=== PATIENT | female | born 1995 | race African-American/Black ===

== ENCOUNTER 2019-05-05 04:19 | Emergency (ER) | payer MEDICAID ==
[~2019-05-05] VITALS: Ht 160 cm; Wt 75.0 kg
[2019-05-05 06:27] LABS: BASOPHILS % 0.7 % (0.0-2.0); EOSINOPHILS % 7.3 % (0.0-5.0); HEMATOCRIT. 37.6 % (36.0-48.0); HEMOGLOBIN. 12.7 g/dL (12.0-16.0); LYMPHOCYTES % 26.8 % (20.0-50.0); MEAN CORPUSCULAR HEMOGLOBIN 32.4 pg (28.0-32.0); MEAN CORPUSCULAR VOLUME 95.8 fL (81.0-99.0); MEAN PLATELET VOLUME 7.1 fl (7.4-10.4); MONOCYTES % 8.8 % (2.0-8.0); NEUTROPHILS % 56.4 % (40.0-76.0); PLATELET 232 x1000/uL (130-400); RED BLOOD CELL COUNT 3.93 mill/uL (4.2-5.4); RED CELL DISTRIBUTION WIDTH 13.4 % (11.6-14.6)
[2019-05-05 06:32] LABS: CHLORIDE 111 mEq/L (98-107)
[2019-05-05 06:35] LABS: PROTHROMBIN TIME 10.6 sec (9.6-11.0)
[2019-05-05 08:17] LABS: CLARITY URINE CLOUDY (CLEAR); COLOR URINE YELLOW (YELLOW); KETONES URINE TRACE (NEGATIVE); LEUKOCYTE ESTERASE URINE NEGATIVE (NEGATIVE); NITRITE URINE NEGATIVE (NEGATIVE); OCCULT BLOOD URINE NEGATIVE (NEGATIVE); PH URINE 5.5 (4.5-8.0); PROTEIN URINE NEGATIVE (NEGATIVE); SPECIFIC GRAVITY URINE 1.025 (1.005-1.030); UROBILINOGEN URINE 0.2 E.U./dL (0.2-1.0)
[2019-05-05 09:04] VITALS: BP 113/58
== END 2019-05-05 09:10 | disposition home or self-care (01) ==
LOC: ER 04:19
DX: N39.0 Urinary tract infection, site not specified (principal); E88.09 Other disorders of plasma-protein metabolism, not elsewhere classified; F12.10 Cannabis abuse, uncomplicated; J45.909 Unspecified asthma, uncomplicated; Z90.89 Acquired absence of other organs; Z98.890 Other specified postprocedural states
CPT/HCPCS: 36415; 81025; 99283

== ENCOUNTER 2019-06-01 16:35 | Emergency (ER) | payer MEDICAID ==
[~2019-06-01] VITALS: Ht 160 cm; Wt 73.0 kg
[2019-06-01 19:39] VITALS: BP 128/54
== END 2019-06-01 19:47 | disposition home or self-care (01) ==
LOC: ER 16:35
DX: J45.909 Unspecified asthma, uncomplicated (principal); Z76.0 Encounter for issue of repeat prescription; R03.0 Elevated blood-pressure reading, without diagnosis of hypertension
CPT/HCPCS: 99283; Z7610

== ENCOUNTER 2019-07-03 18:24 | Emergency (ER) | payer MEDICAID ==
[~2019-07-03] VITALS: Ht 165.1 cm; Wt 113.0 kg
[2019-07-03] MEDS ORDERED: LORAZEPAM 1MG TABLET PO PRN (19:00)
[2019-07-03 20:49] LABS: BASOPHILS % 0.5 % (0.0-2.0); EOSINOPHILS % 3.1 % (0.0-5.0); HEMOGLOBIN. 12.6 g/dL (12.0-16.0); MEAN CORPUSCULAR HEMOGLOBIN 31.7 pg (28.0-32.0); NEUTROPHILS % 60.4 % (40.0-76.0); PLATELET 247 x1000/uL (130-400); RED BLOOD CELL COUNT 3.98 mill/uL (4.2-5.4); RED CELL DISTRIBUTION WIDTH 12.2 % (11.6-14.6)
[2019-07-03 20:52] LABS: CHLORIDE 106 mEq/L (98-107)
[2019-07-03 20:56] LABS: ETHANOL BLOOD < 10 mg/dL
[2019-07-03 21:11] LABS: HCG SCREEN NEGATIVE
[2019-07-04 07:04] LABS: CLARITY URINE CLOUDY (CLEAR); COLOR URINE YELLOW (YELLOW); KETONES URINE NEGATIVE (NEGATIVE); LEUKOCYTE ESTERASE URINE 2+ (NEGATIVE); NITRITE URINE NEGATIVE (NEGATIVE); OCCULT BLOOD URINE NEGATIVE (NEGATIVE); PROTEIN URINE NEGATIVE (NEGATIVE); SPECIFIC GRAVITY URINE 1.023 (1.005-1.030); UROBILINOGEN URINE 0.2 E.U./dL (0.2-1.0)
[2019-07-04 07:30] LABS: *AMPHETAMINES SCREEN URINE NEGATIVE (NEGATIVE); *BARBITURATES SCREEN URINE NEGATIVE (NEGATIVE); *BENZODIAZEPINES SCREEN URINE NEGATIVE (NEGATIVE); *COCAINE SCREEN URINE NEGATIVE (NEGATIVE)
[2019-07-04 07:31] LABS: METHADONE URINE SCREEN NEGATIVE (NEGATIVE); OPIATES URINE SCREEN NEGATIVE (NEGATIVE); PHENCYCLIDINE URINE SCREEN NEGATIVE (NEGATIVE)
[2019-07-04 07:40] LABS: CANNABINOID URINE SCREEN PRESUMTIVE POSITIVE (NEGATIVE)
[2019-07-04] MEDS ORDERED: ACETAMINOPHEN 325MG TABLET PO ONE (09:15)
[2019-07-04 13:50] VITALS: BP 112/58
== END 2019-07-04 13:52 | disposition home or self-care (01) ==
LOC: ER 18:39
DX: R41.82 Altered mental status, unspecified (principal); R53.1 Weakness; R45.851 Suicidal ideations; J45.909 Unspecified asthma, uncomplicated; Z87.09 Personal history of other diseases of the respiratory system; F12.10 Cannabis abuse, uncomplicated
CPT/HCPCS: 36415; 80305; 80307; 80320; 80329; 81003; 84443; 84703; 93005; 99284; G0480

== ENCOUNTER 2023-12-15 02:01 | Emergency (ER) | payer MEDICAID, OTHER ==
[~2023-12-15] VITALS: Ht 170.2 cm; Wt 70.0 kg
[2023-12-15 02:05] VITALS: BP 101/56; PULSE 78; RESP 16; TEMP 98; O2SAT 99
[2023-12-15] MEDS ORDERED: IBUP-2029 MT (02:20)
[2023-12-15] MEDS ORDERED: BO1 TP (02:20)
[2023-12-15] MEDS ORDERED: LIDOCAINE HCL/PF 1% 10 MG/ML 5ML VIAL INFIL ONE (02:30)
[2023-12-15] MEDS ORDERED: TETANUS, DIPHTHERIA, PERTUSSIS VAC/PF 0.5ML (>10YR OLD) IM ONE (02:30)
[2023-12-15] MEDS ORDERED: IBUPROFEN 600MG TABLET PO ONE (02:30)
[2023-12-15] MEDS ORDERED: BACITRACIN ZINC OINT UDPKT TOP ONE (02:30)
== END 2023-12-15 03:42 | disposition home or self-care (01) ==
LOC: ER 02:01
DX: S51.811A Laceration without foreign body of right forearm, initial encounter (principal); F12.10 Cannabis abuse, uncomplicated; J45.909 Unspecified asthma, uncomplicated; Z86.59 Personal history of other mental and behavioral disorders; W26.0XXA Contact with knife, initial encounter; Y93.G3 Activity, cooking and baking; Y92.89 Other specified places as the place of occurrence of the external cause; Y99.8 Other external cause status
CPT/HCPCS: 73090; 90715; 12001; 90471; 99283; J3490; Z7610 ×3